=== PATIENT | male | born 1985 | race American Indian/Alaskan Native ===

== ENCOUNTER 2018-01-24 20:21 | Emergency (ER) | payer MEDICAID ==
--- NOTE | 2018-01-24 20:53 | C.PDOC ---
History Of Present Illness 32 year old male is brought to the ED by a friend for evaluation. Patient is not responding to questions, all history obtained through his friend at bedside. As per friend patient has been acting strangely with odd behavior for the past few days. Patient is not taking any medications and has no allergies. Time Seen by Provider: 01/24/18 20:49 Chief Complaint (Nursing): Psychiatric Evaluation History Per: Family History/Exam Limitations: clinical condition Onset/Duration Of Symptoms: Days Current Symptoms Are (Timing): Still Present Suicide/Self Injury Attempted (Context): None Modifying Factor(s): Marijuana, Cocaine Associated Symptoms: denies: Depression, Suicidal Thoughts, Suicidal Plan Involuntary Hold By: None Recent travel outside of the [place]: No Additional History Per: Friend Past Medical History Reviewed: Historical Data, Nursing Documentation, Vital Signs Vital Signs: Last Vital Signs Temp 97.6 F 01/24/18 21:08 Pulse 48 L 01/25/18 06:06 Resp 20 01/25/18 06:06 BP 101/47 L 01/25/18 06:06 Pulse Ox 97 01/25/18 06:06 - Medical History PMH: No Chronic Diseases Surgical History: No Surg Hx Family History: States: Unknown Family Hx - Social History Hx Alcohol Use: No Hx Substance Use: Yes - Immunization History Hx Tetanus Toxoid Vaccination: No Hx Influenza Vaccination: No Hx Pneumococcal Vaccination: No Review Of Systems Review Of Systems: ROS cannot be obtained secondary to pt's inabilty to answer questions. Physical Exam - Physical Exam Appears: Non-toxic, Other (not responding to questions, responsive to internal stimuli) Skin: Normal Color, Warm, Dry Head: Atraumatic, Normacephalic Eye(s): bilateral: Normal Inspection, PERRL, EOMI Ear(s): Bilateral: Normal Nose: Normal Oral Mucosa: Moist Tongue: Normal Appearing Lips: Normal Appearing Gingiva: Normal Appearing Neck: Normal ROM, Supple Chest: Symmetrical Cardiovascular: Rhythm Regular Respiratory: Normal Breath Sounds, No Rales, No Rhonchi, No Wheezing Gastrointestinal/Abdominal: Soft, No Tenderness, No Guarding, No Rebound Back: Normal Inspection Extremity: Normal ROM, No Tenderness, No Swelling Extremity: Bilateral: Atraumatic, No Pedal Edema, Normal Color And Temperature, Normal ROM Neurological/Psych: Oriented x3 Gait: Steady ED Course And Treatment - Laboratory Results Result Diagrams: 01/24/18 20:46 01/24/18 20:46 ECG: Interpreted By Me, Viewed By Me ECG Rhythm: Sinus Rhythm Interpretation Of ECG: [place] 126. QRS 136. Qc 331. Qtc 429. no ischemic changes , LVH Rate From EC (BPM) O2 Sat by Pulse Oximetry: 100 (ON RA) Pulse Ox Interpretation: Normal Medical Decision Making Medical Decision Making: Impression: erratic behavior Plan: * EKG * Labs * UA * Patient was positive for cocaine and marijuana Patient is medically cleared to be seen by Crisis. 23:05- Patient started acting erratic, verbally abusive, loud towards the staff and security. Patient was placed on 4 point restrains for his safety and the safety of the staff. Disposition Doctor Will See Patient In The: Hospital Counseled Patient/Family Regarding: Diagnosis - Disposition Disposition: HOME/ ROUTINE Disposition Time: 06:25 Condition: GUARDED Forms: [facility] ([place]ux[place]ish) - Clinical Impression Clinical Impression: Psychosis - Scribe Statement The provider has reviewed the documentation as recorded by the Scribe Provider Attestation: Lopez Odonnell All medical record entries made by the Scribe were at my direction and personally dictated by me. I have reviewed the chart and agree that the record accurately reflects my personal performance of the history, physical exam, medical decision making, and the department course for this patient. I have also personally directed, reviewed, and agree with the discharge instructions and disposition.
[2018-01-24 20:58] LABS: BASO % 0.5 % (0.0-2.0); EOS # 0.1 K/uL (0.0-0.7); EOS % 0.5 % (0.0-4.0); HEMOGLOBIN 15.2 g/dL (12.0-18.0); LYMPH # 3.3 K/uL (1.0-4.3); LYMPH % 33.8 % (20.0-40.0); MEAN CELL VOLUME 90.4 fL (80.0-94.0); MEAN CORPUSCULAR HEMOGLOBIN 30.6 pg (27.0-31.0); MEAN CORPUSCULAR HGB CONC 33.8 g/dL (33.0-37.0); MEAN PLATELET VOLUME 7.7 fL (7.2-11.7); MONO # 1.1 K/uL (0.0-0.8); MONO % 11.7 % (0.0-10.0); NEUT # 5.2 K/uL (1.8-7.0); NEUT % 53.5 % (50.0-75.0); RBC 4.96 Mil/uL (4.40-5.90); RED CELL DISTRIBUTION WIDTH 13.5 % (11.5-14.5); WHITE BLOOD COUNT 9.8 K/uL (4.8-10.8)
[2018-01-24 21:01] LABS: URINE CLARITY Clear (Clear); URINE COLOR Yellow (YELLOW); URINE GLUCOSE (UA) NORMAL (Normal)
[2018-01-24 21:02] LABS: SQUAMOUS EPITHIAL < 1 /hpf (0-5); URINE BACTERIA RARE (<OCC); URINE BILIRUBIN NEGATIVE (NEGATIVE); URINE BLOOD NEGATIVE (NEGATIVE); URINE LEUKOCYTE ESTERASE NEG Leu/uL (Negative); URINE PROTEIN NEGATIVE (NEGATIVE)
[2018-01-24 21:15] LABS: ALB/GLOB RATIO 1.3 (1.0-2.1); ALBUMIN 4.7 g/dL (3.5-5.0); ALT/SGPT 45 U/L (21-72); AST/SGOT 59 U/L (17-59); BARBITURATES, UR NEGATIVE (NEGATIVE); BENZODIAZEPINES, UR NEGATIVE (NEGATIVE); BLOOD UREA NITROGEN 13 mg/dL (9-20); CALCIUM 9.4 mg/dl (8.6-10.4); GFR AFRICAN-AMERICAN > 60; GFR NON-AFRICAN AMERICAN > 60; OPIATES, UR NEGATIVE (NEGATIVE); PHENCYCLIDINE, UR NEGATIVE (NEGATIVE)
[2018-01-24] MEDS ORDERED: Midazolam 2 MG/2 ML VIAL IM STA (22:53)
[2018-01-24] MEDS ORDERED: DiphenhydrAMINE 50 mg/ml Inj IM STA (22:54)
[2018-01-24] MEDS ORDERED: DiphenhydrAMINE 50 mg/ml Inj ONE (22:57)
[2018-01-24] MEDS ORDERED: Midazolam 2 MG/2 ML VIAL ONE (22:58)
[2018-01-25 06:26] VITALS: O2SAT 100
[2018-01-25 12:03] VITALS: BP 114/70; PULSE 61; RESP 15; TEMP 98.6
--- NOTE | 2018-01-26 20:05 | CARD ---
APPROVED REPORT EKG Measurement Heart [id number] <Conclusion> Normal sinus rhythm with sinus arrhythmia Left ventricular hypertrophy with QRS widening Abnormal ECG
== END 2018-01-25 12:23 | disposition home or self-care (01) ==
LOC: C.ER 20:21
DX: F29 Unspecified psychosis not due to a substance or known physiological condition (principal); F19.10 Other psychoactive substance abuse, uncomplicated
CPT/HCPCS: 36415; 80053; 80320; 80324; 80345; 80346; 80349; 80353; 80358; 80361; 81001; 83992; 85025; 93005; 96372; 99285; J1200; J1630; J2250